=== PATIENT | male | born 1960 | race Caucasian/White ===

== ENCOUNTER 2017-06-12 17:44 | Emergency (ER) | payer BC ==
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
[2017-06-12 19:30] VITALS: BP 146/86
== END 2017-06-12 18:55 ==
LOC: LL.ED 17:44
DX: S61.512A Laceration without foreign body of left wrist, initial encounter (principal); K21.9 Gastro-esophageal reflux disease without esophagitis; Z79.899 Other long term (current) drug therapy; W26.0XXA Contact with knife, initial encounter
CPT/HCPCS: 99282

== ENCOUNTER 2020-09-15 10:16 | Day surgery (SDC) | payer BC ==
[2020-09-15] MEDS: Lactated Ringers 1,000 ML IV SCH (11:43)
--- NOTE | 2020-09-15 12:14 | PCM.HPR ---
H & P Addendum review - H & P Addendum Review Date of Original H & P: 09/01/20 Date Reviewed: 09/15/20 Time Reviewed: 12:13 Patient was Examined: No Changes
[2020-09-15] MEDS ORDERED: Propofol 200 MG/20 ML SDV ONE ×2 (12:18→12:21)
[2020-09-15] MEDS ORDERED: Midazolam 1 MG/ML 2 ML SDV ONE ×2 (12:18→12:21)
--- NOTE | 2020-09-15 12:53 | PCM.OPNOTE ---
- General Post-Op/Procedure Note Date of Surgery/Procedure: 09/15/20 Operative Procedure(s): Colonoscopy with polypectomy Findings: 5 mm cecal polyp Pre Op Diagnosis: Pos Cologuard Post-Op Diagnosis: Same Anesthesia Technique: SHANON Primary Surgeon: Fredy Fuller Anesthesia Provider: Shiloh Armstrong Complications: None Condition: Good
--- NOTE | 2020-09-15 13:20 | OR ---
Date of Procedure: 09/15/2020 PREOPERATIVE DIAGNOSIS: Positive Cologuard. POSTOPERATIVE DIAGNOSIS: Cecal polyp. PROCEDURE: Colonoscopy with polypectomy. ANESTHESIA: IV sedation. PROCEDURE IN DETAIL: Patient was brought to the procedure room where he was placed in his left side and IV sedation administered. Digital rectal exam was performed, which was normal. Colonoscope was inserted and advanced to the level of the cecum with some difficulty getting through the ascending colon, requiring some pressure on the abdomen. Cecum was reached and confirmed by identifying the appendiceal lumen and ileocecal valve. Prep was good and surfaces were well visualized. In the cecum adjacent to the appendiceal orifice, was a 5 mm sessile polyp removed with hot biopsy forceps. The remaining ascending, transverse, and descending colon were normal in appearance. Sigmoid colon and rectum were normal. Retroflexion was normal. Air was removed and the scope withdrawn. Patient tolerated the procedure well, returned to recovery in stable condition. Patient will be contacted with the pathology report when it returns. If the polyp is adenomatous, he should undergo a repeat colonoscopy again in 5 years. If the polyp is hyperplastic or benign mucosa, he can wait 10 years until his next colonoscopy. JULIANA ESPINOZA MD /[id number]
[2020-09-15] MEDS: Ondansetron 4 MG/2 ML SDV IVPUSH ONE (13:44)
[2020-09-15] MEDS: Sodium Chloride 0.9% 10 ML Syringe FLUSH PRN (13:46)
[2020-09-15 16:46] VITALS: BP 160/90; PULSE 80
== END 2020-09-15 14:29 | disposition home or self-care (01) ==
LOC: LL.SDS 10:16
PROVIDERS: ATTEND Surgery
DX: D12.0 Benign neoplasm of cecum (principal); Z90.49 Acquired absence of other specified parts of digestive tract; Z98.890 Other specified postprocedural states; Z79.899 Other long term (current) drug therapy; Z01.812 Encounter for preprocedural laboratory examination; Z20.822 Contact with and (suspected) exposure to COVID-19
CPT/HCPCS: 00811; J2250; J2405; J2704; J7120; U0002

== ENCOUNTER 2022-08-19 20:34 | Emergency (ER) | payer BC ==
[2022-08-19] MEDS: Ondansetron 4 MG/2 ML SDV IVPUSH PRN (20:56)
[2022-08-19] MEDS ORDERED: Sodium Chloride 0.9% 1,000 ML IV SCH (21:00)
[2022-08-19] MEDS: HYDROmorphone 0.5 MG/0.5 ML Syringe IVPUSH PRN (21:01)
[2022-08-19] MEDS ORDERED: Iopamidol 612 MG/ML 100 ML Bottle IVPUSH STA (21:09)
[2022-08-19 21:19] LABS: ANION GAP 8.7 meq/L (7-15); CHLORIDE,CL 100 mmol/L (98-107); SODIUM,NA 139 mmol/L (136-145)
[2022-08-19 21:20] LABS: ESTIMATED GFR 69 mL/min (>=60)
[2022-08-19] MEDS ORDERED: Simethicone 125 MG Tab.Chew PO PRN (21:44)
[2022-08-20] MEDS: Ondansetron 4 MG/2 ML SDV IVPUSH PRN (04:41)
[2022-08-20] MEDS: HYDROmorphone 0.5 MG/0.5 ML Syringe IVPUSH PRN (04:44)
[2022-08-20 05:53] VITALS: BP 155/78; PULSE 99
== END 2022-08-20 05:00 ==
LOC: LL.ED 20:34
DX: K56.699 Other intestinal obstruction unspecified as to partial versus complete obstruction (principal); I10 Essential (primary) hypertension; E66.9 Obesity, unspecified; Z68.30 Body mass index [BMI] 30.0-30.9, adult; Z79.899 Other long term (current) drug therapy; Z90.49 Acquired absence of other specified parts of digestive tract
CPT/HCPCS: 36415; 74177; 80053; 84484; 85025; 93005; 93010; 96374; 96375; 96376; 99284; 99284-25; A9270-GY; J1170; J2405; J7030; Q9967

== ENCOUNTER 2024-01-21 10:40 | Emergency (ER) | payer BC ==
[2024-01-21] MEDS ORDERED: Sodium Chloride 0.9% 10 ML Syringe FLUSH PRN (10:50)
[2024-01-21 10:57] LABS: BASOPHILS ABSOLUTE AUTO 0.04 K/uL (0.00-0.20); BASOPHILS PERCENT AUTO 0.5 % (0.0-2.0); EOSINOPHILS ABSOLUTE AUTO 0.21 K/uL (0.00-0.50); EOSINOPHILS PERCENT AUTO 2.7 % (0.0-5.0); HEMATOCRIT 48.7 % (39.0-49.0); HEMOGLOBIN 16.8 g/dL (13.1-16.8); LYMPHOCYTES ABSOLUTE AUTO 1.94 K/uL (0.50-3.50); MEAN CORPUSCULAR HGB CONC 34.5 g/dL (31.7-36.0); MEAN CORPUSCULAR VOLUME 84.1 fL (84.0-98.0); MONOCYTES ABSOLUTE AUTO 0.71 K/uL (0.00-1.00); MONOCYTES PERCENT AUTO 9.1 % (2.0-14.0); NEUTROPHILS ABSOLUTE AUTO 4.86 K/uL (1.40-7.00); NEUTROPHILS PERCENT AUTO 62.7 % (45.0-80.0); PLATELET COUNT,PLT 228 K/uL (150-350); RED BLOOD CELL COUNT 5.79 M/uL (4.33-5.41); RED CELL DISTRIBUTION WIDTH 13.7 % (11.2-14.1); WHITE BLOOD CELL COUNT,WBC 7.8 K/uL (4.0-10.2)
[2024-01-21 11:20] LABS: ALBUMIN 4.4 g/dL (3.4-5.0); ANION GAP 7.6 meq/L (7-15); CALCIUM 8.6 mg/dL (8.5-10.1); CARBON DIOXIDE,CO2 28.4 mmol/L (21.0-32.0); CREATININE 1.13 mg/dL (0.51-1.17); EST CRCL DRUG DOSING (CG) 73.44 mL/min; POTASSIUM,K 3.9 mmol/L (3.5-5.1); PROTEIN TOTAL,TP 7.7 g/dL (6.4-8.2)
[2024-01-21 11:58] VITALS: BP 147/71; PULSE 72
== END 2024-01-21 11:39 | disposition home or self-care (01) ==
LOC: LL.ED 10:40
DX: R07.89 Other chest pain (principal); K21.9 Gastro-esophageal reflux disease without esophagitis; E03.9 Hypothyroidism, unspecified; Z79.899 Other long term (current) drug therapy; Z90.49 Acquired absence of other specified parts of digestive tract
CPT/HCPCS: 36415; 71045; 80053; 83690; 84484; 85025; 93005; 93010; 99284; 99285

== ENCOUNTER 2024-11-26 08:52 | Day surgery (SDC) | payer BC ==
[~2024-11-26 08:52] MED LIST: Midazolam 1 MG/ML 2 ML SDV ONE; Propofol 200 MG/20 ML SDV ONE; Sodium Chloride 0.9% 10 ML Syringe FLUSH PRN
[2024-11-26] MEDS: Lactated Ringers 1,000 ML IV SCH (09:05)
[2024-11-26 11:19] VITALS: BP 141/74; PULSE 78
== END 2024-11-26 11:40 | disposition home or self-care (01) ==
LOC: LL.SDS 08:52
PROVIDERS: ATTEND Surgery
DX: Z12.11 Encounter for screening for malignant neoplasm of colon (principal); D12.3 Benign neoplasm of transverse colon; K63.5 Polyp of colon; I10 Essential (primary) hypertension; E78.5 Hyperlipidemia, unspecified; E03.9 Hypothyroidism, unspecified; K21.9 Gastro-esophageal reflux disease without esophagitis; E66.01 Morbid (severe) obesity due to excess calories; Z68.37 Body mass index [BMI] 37.0-37.9, adult; Z86.0101 Personal history of adenomatous and serrated colon polyps; Z79.890 Hormone replacement therapy; Z79.899 Other long term (current) drug therapy
CPT/HCPCS: 00811; J2250; J2704; J7120

== ENCOUNTER 2025-06-07 16:14 | Emergency (ER) | payer MEDICARE, BC ==
[2025-06-07 17:18] LABS: BASOPHILS ABSOLUTE AUTO 0.03 K/uL (0.00-0.20); BASOPHILS PERCENT AUTO 0.1 % (0.0-2.0); EOSINOPHILS ABSOLUTE AUTO 0.06 K/uL (0.00-0.50); EOSINOPHILS PERCENT AUTO 0.3 % (0.0-5.0); IMMATURE GRAN ABSOLUTE AUTO 0.07 10^3/uL (0.00-0.04); IMMATURE GRAN PERCENT AUTO 0.3 % (0.0-0.4); LYMPHOCYTES ABSOLUTE AUTO 0.87 K/uL (0.50-3.50); LYMPHOCYTES PERCENT AUTO 3.9 % (10.0-50.0); MONOCYTES ABSOLUTE AUTO 1.38 K/uL (0.00-1.00); MONOCYTES PERCENT AUTO 6.2 % (2.0-14.0); NEUTROPHILS ABSOLUTE AUTO 19.84 K/uL (1.40-7.00); NEUTROPHILS PERCENT AUTO 89.2 % (45.0-80.0); PLATELET COUNT,PLT 187 K/uL (150-350); RED BLOOD CELL COUNT 5.63 M/uL (4.33-5.41); RED CELL DISTRIBUTION WIDTH 13.0 % (11.2-14.1); WHITE BLOOD CELL COUNT,WBC 22.3 K/uL (4.0-10.2)
[2025-06-07 17:27] LABS: CORONAVIRUS COVID-19 NAA NEGATIVE (NEGATIVE); INFLUENZA A NAA NEGATIVE (NEGATIVE); INFLUENZA B NAA NEGATIVE (NEGATIVE); RESPIRATORY SYNCYTIAL VIR NAA NEGATIVE (NEGATIVE)
[2025-06-07 17:38] LABS: ALANINE AMINOTRANSFERASE,ALT 34.0 U/L (12-78); ASPARTATE AMNIOTRANSFERASE,AST 24.0 U/L (15-37); BILIRUBIN TOTAL 1.9 mg/dL (0.2-1.0); BLOOD UREA NITROGEN,BUN 12.0 mg/dL (7-18); CARBON DIOXIDE,CO2 29.4 mmol/L (21.0-32.0); CHLORIDE,CL 103.0 mmol/L (98-107); CREATININE 1.49 mg/dL (0.51-1.17); EST CRCL DRUG DOSING (CG) 54.25 mL/min; GLUCOSE RANDOM 132.0 mg/dL (70-99); POTASSIUM,K 4.4 mmol/L (3.5-5.1); PROTEIN TOTAL,TP 7.7 g/dL (6.4-8.2); SODIUM,NA 142.0 mmol/L (136-145)
[2025-06-07 17:39] LABS: ESTIMATED GFR 52.0 mL/min (>=60)
[2025-06-07 17:43] LABS: LACTIC ACID 1.9 mmol/L (0.4-2.0)
[2025-06-07] MEDS: Sodium Chloride 0.9% 10 ML Syringe FLUSH PRN (17:58)
[2025-06-07] MEDS: Lactated Ringers 1,000 ML IV SCH (18:06)
[2025-06-07] MEDS: Take Home: Doxycycline 100 MG Cap, 4 Cap Pack PO ONE (19:15)
[2025-06-07 19:57] VITALS: BP 132/75; PULSE 106
== END 2025-06-07 19:15 | disposition home or self-care (01) ==
LOC: LL.ED 16:14
DX: J18.9 Pneumonia, unspecified organism (principal); I10 Essential (primary) hypertension; E03.9 Hypothyroidism, unspecified; E78.00 Pure hypercholesterolemia, unspecified; Z79.899 Other long term (current) drug therapy; Z79.890 Hormone replacement therapy; Z90.49 Acquired absence of other specified parts of digestive tract
CPT/HCPCS: 36415; 71046; 74022; 80053; 83605; 83735; 85025; 86140; 87040; 87637; 96361; 96374; 99285; A9270; J0696; J7120